=== PATIENT | male | born 1955 | race African-American/Black ===

== ENCOUNTER 2017-08-07 23:31 | Emergency (ER) | payer SELFPAY ==
[~2017-08-07] VITALS: Ht 182.9 cm; Wt 86.0 kg
[2017-08-07 23:39] VITALS: BP 129/90
[2017-08-08] MEDS ORDERED: IBUPROFEN 600MG TABLET PO ONE (00:30)
== END 2017-08-08 01:00 | disposition left against medical advice (07) ==
LOC: ER 23:31
DX: M79.644 Pain in right finger(s) (principal); F17.210 Nicotine dependence, cigarettes, uncomplicated; Z88.6 Allergy status to analgesic agent; Z98.890 Other specified postprocedural states; W01.0XXA Fall on same level from slipping, tripping and stumbling without subsequent striking against object, initial encounter; Y93.89 Activity, other specified; Y92.018 Other place in single-family (private) house as the place of occurrence of the external cause
CPT/HCPCS: 99281

== ENCOUNTER 2024-12-31 11:55 | Inpatient (IN) | payer MEDICARE ==
[~2024-12-31] VITALS: Ht 180.3 cm; Wt 78.0 kg
[2024-12-31 12:36] LABS: BASOPHILS % 0.7 % (0.0-2.0); DIFFERENTIAL COMMENT 0; EOSINOPHILS % 2.1 % (0.0-5.0); HEMATOCRIT. 42.6 % (42.0-52.0); HEMOGLOBIN. 13.8 g/dL (14.0-18.0); LYMPHOCYTES % 29.3 % (20.0-50.0); MEAN CORPUSCULAR HEMOGLOBIN 32.7 pg (28.0-32.0); MEAN CORPUSCULAR HGB CONC 32.5 g/dL (31.0-37.0); MEAN CORPUSCULAR VOLUME 100.7 fL (80.0-94.0); MEAN PLATELET VOLUME 9.2 fl (7.4-10.4); MONOCYTES % 11.2 % (2.0-8.0); NEUTROPHILS % 56.7 % (40.0-76.0); PLATELET 139 x1000/uL (130-400); RED BLOOD CELL COUNT 4.23 mill/uL (4.7-6.1); RED CELL DISTRIBUTION WIDTH 14.5 % (11.6-14.6); WHITE BLOOD COUNT 5.3 x1000/uL (4.5-11.0)
[2024-12-31 12:43] LABS: CHLORIDE 109 mEq/L (98-107); POTASSIUM 4.1 mEq/L (3.5-5.1); SODIUM 142 mEq/L (136-145)
[2024-12-31 12:44] LABS: CALCIUM 8.6 mg/dL (8.7-10.4); CARBON DIOXIDE 26 mEq/L (21-32)
[2024-12-31 12:49] LABS: CREATININE 1.3 mg/dL (0.6-1.3); GLUCOSE 99 mg/dL (70-105); UREA NITROGEN BLOOD 20 mg/dL (9-23)
[2024-12-31 12:50] LABS: TROPONIN I HIGH SENSITIVITY 15 ng/L (3.0-53)
[2024-12-31] MEDS: ONDANSETRON HCL 4MG/2ML INJ IV STA (12:52)
[2024-12-31] MEDS: NITROGLYCERIN OINT 1GM/INCH UDPKT TD ONE (12:53)
[2024-12-31] MEDS: MORPHINE SULFATE 4 MG/ML INJ (FOR IV/IM USE) IV STA (12:53)
[2024-12-31] MEDS: FUROSEMIDE 40MG/4ML VIAL IVP ONE (13:50)
[2024-12-31] MEDS ORDERED: IPRATROPIUM/ALBUTEROL 0.5-3(2.5)MG/3ML NEB HHN PRN (14:15)
[2024-12-31] MEDS ORDERED: CLONIDINE 0.1MG TABLET PO PRN (14:15)
[2024-12-31] MEDS ORDERED: ONDANSETRON HCL 4MG/2ML INJ IV PRN (14:15)
[2024-12-31] MEDS ORDERED: ACETAMINOPHEN 325MG TABLET PO PRN (14:15)
[2024-12-31] MEDS ORDERED: GUAIFENESIN 200MG/10ML SUGAR FREE UDC PO PRN (14:15)
[2024-12-31 14:45] LABS: IRON 97 ug/dL (65-175)
[2024-12-31 14:46] LABS: LDL CHOLESTEROL 113 mg/dL (5-100); TRIGLYCERIDE 69 mg/dL (0-150)
[2024-12-31 14:47] LABS: FOLIC ACID (FOLATE) SERUM 10.37 ng/mL (>5.38); VITAMIN B12 SERUM 355 pg/mL (211-911)
[2024-12-31 14:47] LABS: CHOLESTEROL 175 mg/dL (<200); HDL CHOLESTEROL 43 mg/dL (>55); PHOSPHORUS 3.2 mg/dL (2.5-4.9); TROPONIN I HIGH SENSITIVITY 17 ng/L (3.0-53)
[2024-12-31 14:48] LABS: TOTAL IRON BINDING CAPACITY 257 ug/dl (250-425)
[2024-12-31 14:48] LABS: FERRITIN 87 ng/mL (22-322)
[2024-12-31 14:50] LABS: T4 FREE 1.24 ng/dL (0.89-1.76)
[2024-12-31] MEDS: ENOXAPARIN 40MG/0.4ML SYR SUBCUT SCH (15:06)
[2024-12-31 18:46] LABS: CLARITY URINE CLEAR (CLEAR); COLOR URINE YELLOW (YELLOW); GLUCOSE URINE NEGATIVE (NEGATIVE); KETONES URINE NEGATIVE (NEGATIVE); LEUKOCYTE ESTERASE URINE NEGATIVE (NEGATIVE); NITRITE URINE NEGATIVE (NEGATIVE); OCCULT BLOOD URINE TRACE (NEGATIVE); PROTEIN URINE NEGATIVE (NEGATIVE); SPECIFIC GRAVITY URINE 1.007 (1.005-1.030); UROBILINOGEN URINE 0.2 E.U./dL (0.2-1.0)
[2024-12-31 19:07] LABS: *AMPHETAMINES SCREEN URINE NEGATIVE (NEGATIVE); *BARBITURATES SCREEN URINE NEGATIVE (NEGATIVE); *BENZODIAZEPINES SCREEN URINE NEGATIVE (NEGATIVE); *COCAINE SCREEN URINE NEGATIVE (NEGATIVE); CANNABINOID URINE SCREEN NEGATIVE (NEGATIVE); ECSTASY MDMA SCREEN URINE NEGATIVE (NEGATIVE); METHADONE URINE SCREEN NEGATIVE (NEGATIVE); OPIATES URINE SCREEN PRESUMPTIVE POSITIVE (NEGATIVE); PHENCYCLIDINE URINE SCREEN NEGATIVE (NEGATIVE)
[2024-12-31 19:27] LABS: BACTERIA URINE NONE SEEN; RBC URINE 0-2 /hpf (0-2); SQUAMOUS EPITHELIAL CELL URINE RARE /lpf (RARE/1+); WBC URINE NONE SEEN /hpf (0-2)
[2024-12-31 21:47] LABS: TROPONIN I HIGH SENSITIVITY 17 ng/L (3.0-53)
[2024-12-31] MEDS: ATORVASTATIN CALCIUM 20MG TABLET PO SCH (22:07)
[2025-01-01 00:27] LABS: CREATINE KINASE MB FRACTION 0.8 ng/mL (0.5-3.6)
[2025-01-01 03:44] LABS: HEMATOCRIT 41.1 % (42.0-52.0); HEMOGLOBIN 13.8 g/dL (14.0-18.0); MEAN CORPUSCULAR HEMOGLOBIN 33.5 pg (28.0-32.0); MEAN CORPUSCULAR HGB CONC 33.6 g/dL (31.0-37.0); MEAN CORPUSCULAR VOLUME 99.6 fL (80.0-94.0); PLATELET 135 x1000/uL (130-400); RED BLOOD CELL COUNT 4.13 mill/uL (4.7-6.1); RED CELL DISTRIBUTION WIDTH 14.7 % (11.6-14.6); WHITE BLOOD COUNT 4.7 x1000/uL (4.5-11.0)
[2025-01-01 04:07] LABS: CREATINE KINASE MB FRACTION < 0.5 ng/mL (0.5-3.6)
[2025-01-01 04:08] LABS: TROPONIN I HIGH SENSITIVITY 17 ng/L (3.0-53)
[2025-01-01 04:20] LABS: CARBON DIOXIDE 26 mEq/L (21-32); CHLORIDE 107 mEq/L (98-107); SODIUM 143 mEq/L (136-145)
[2025-01-01 04:21] LABS: CALCIUM 8.5 mg/dL (8.7-10.4)
[2025-01-01 04:25] LABS: CREATININE 1.3 mg/dL (0.6-1.3)
[2025-01-01 04:26] LABS: GLUCOSE 111 mg/dL (70-105); UREA NITROGEN BLOOD 21 mg/dL (9-23)
[2025-01-01] MEDS: ACETAMINOPHEN 325MG TABLET PO PRN (07:11)
[2025-01-01 08:00] VITALS: BP 113/80; PULSE 92; RESP 18; TEMP 36.3; O2SAT 100
[2025-01-01 08:30] VITALS: BP 113/80; PULSE 92; RESP 18; TEMP 36.3
[2025-01-01] MEDS: PANTOPRAZOLE 40MG DR TABLET PO SCH (09:50)
[2025-01-01] MEDS: FUROSEMIDE 40MG/4ML VIAL IVP SCH (09:50)
[2025-01-01] MEDS: ASPIRIN 81MG TABLET PO SCH (09:50)
[2025-01-01] MEDS: NICOTINE 14MG PATCH TD SCH (09:51)
[2025-01-01 12:00] VITALS: BP 111/78; PULSE 89; RESP 19; TEMP 36.4; O2SAT 98
[2025-01-01] MEDS ORDERED: CARV3.1242 PO (14:27)
[2025-01-01] MEDS ORDERED: ATOR20TA PO (14:27)
[2025-01-01] MEDS ORDERED: CLOP-31 PO (14:27)
[2025-01-01] MEDS: CARVEDILOL 3.125 MG TABLET PO NR (14:50)
[2025-01-01 16:00] VITALS: BP 113/71; PULSE 86; RESP 18; TEMP 36.6; O2SAT 98
[2025-01-01 20:00] VITALS: BP 108/68; PULSE 56; RESP 19; TEMP 36.5; O2SAT 98
[2025-01-01] MEDS: CARVEDILOL 3.125 MG TABLET PO SCH (20:35)
[2025-01-02] VITALS: BP 95/59; PULSE 97; RESP 18; TEMP 36.6; O2SAT 99
[2025-01-02 04:00] VITALS: BP 110/75; PULSE 64; RESP 18; TEMP 37; O2SAT 100
[2025-01-02] MEDS: SODIUM CHLORIDE 0.45% 1,000 ML IV SCH ×2 (06:00→10:21)
[2025-01-02 06:47] LABS: CHLORIDE 103 mEq/L (98-107); POTASSIUM 3.9 mEq/L (3.5-5.1); SODIUM 141 mEq/L (136-145)
[2025-01-02 06:48] LABS: CARBON DIOXIDE 27 mEq/L (21-32)
[2025-01-02 06:49] LABS: CALCIUM 9.1 mg/dL (8.7-10.4)
[2025-01-02 06:53] LABS: CREATININE 1.3 mg/dL (0.6-1.3); GLUCOSE 128 mg/dL (70-105)
[2025-01-02 06:54] LABS: TROPONIN I HIGH SENSITIVITY 13 ng/L (3.0-53); UREA NITROGEN BLOOD 24 mg/dL (9-23)
[2025-01-02 07:04] LABS: PROTHROMBIN TIME 10.9 sec (9.6-11.0)
[2025-01-02 07:23] LABS: HEMATOCRIT. 42.1 % (42.0-52.0); HEMOGLOBIN. 13.9 g/dL (14.0-18.0); MEAN CORPUSCULAR VOLUME 99.7 fL (80.0-94.0); PLATELET 144 x1000/uL (130-400); RED BLOOD CELL COUNT 4.22 mill/uL (4.7-6.1); RED CELL DISTRIBUTION WIDTH 14.2 % (11.6-14.6); WHITE BLOOD COUNT 4.1 x1000/uL (4.5-11.0)
[2025-01-02 07:57] LABS: DIFFERENTIAL COMMENT 1
[2025-01-02 08:00] VITALS: BP 109/77; PULSE 90; RESP 16; TEMP 36.6; O2SAT 97
[2025-01-02] MEDS ORDERED: ASPIRIN/SOD BICARB/CITRIC ACID 324MG TAB EFF ONE (08:22)
[2025-01-02] MEDS ORDERED: HEPARIN 1000 UNITS/ML 10ML ONE (08:42)
[2025-01-02] MEDS ORDERED: IODIXANOL 320MG/ML 100 ML BOTTLE IV ONE ×2 (08:43→09:17)
[2025-01-02] MEDS ORDERED: LIDOCAINE HCL 1% 20ML VIAL ONE (08:43)
[2025-01-02] MEDS ORDERED: MIDAZOLAM HCL 2 MG/2 ML VIAL ONE (08:43)
[2025-01-02] MEDS ORDERED: FENTANYL CITRATE/PF 50MCG/ML 2ML VIAL ONE (08:43)
[2025-01-02] MEDS ORDERED: ACETAMINOPHEN 325MG TABLET PO PRN (09:45)
[2025-01-02] MEDS ORDERED: ONDANSETRON HCL 4MG/2ML INJ IV PRN (09:45)
[2025-01-02] MEDS ORDERED: MORPHINE SULFATE 2 MG/ML INJ (NOT FOR IM USE) IV PRN (09:45)
[2025-01-02] MEDS ORDERED: ATROPINE SULFATE 1MG/10ML SYR IV PRN (09:45)
[2025-01-02 12:00] VITALS: BP 115/76; PULSE 93; RESP 14; TEMP 36.6; O2SAT 100
[2025-01-02] MEDS: CLOPIDOGREL 75MG TABLET PO ONE (12:27)
[2025-01-02 16:00] VITALS: BP 107/72; PULSE 103; RESP 17; TEMP 36.7; O2SAT 100
[2025-01-02 16:47] LABS: PLATELET ESTIMATE NORMAL
[2025-01-02 20:00] VITALS: BP 125/82; PULSE 91; RESP 14; TEMP 36.2; O2SAT 99
[2025-01-02] MEDS: ENOXAPARIN 60MG/0.6ML SYR SUBCUT SCH (20:57)
[2025-01-03] VITALS: BP 111/88; PULSE 88; RESP 18; TEMP 36.2; O2SAT 98
[2025-01-03 04:00] VITALS: BP 103/77; PULSE 87; RESP 14; TEMP 36.3; O2SAT 98
[2025-01-03 07:33] LABS: HEMOGLOBIN. 14.7 g/dL (14.0-18.0); MEAN CORPUSCULAR HEMOGLOBIN 33.5 pg (28.0-32.0); MEAN CORPUSCULAR HGB CONC 33.4 g/dL (31.0-37.0); MEAN CORPUSCULAR VOLUME 100.1 fL (80.0-94.0); PLATELET 145 x1000/uL (130-400); RED CELL DISTRIBUTION WIDTH 14.1 % (11.6-14.6); WHITE BLOOD COUNT 3.7 x1000/uL (4.5-11.0)
[2025-01-03 07:43] LABS: CHLORIDE 103 mEq/L (98-107); POTASSIUM 4.3 mEq/L (3.5-5.1); SODIUM 141 mEq/L (136-145)
[2025-01-03 07:44] LABS: CARBON DIOXIDE 30 mEq/L (21-32)
[2025-01-03 07:45] LABS: CALCIUM 8.8 mg/dL (8.7-10.4)
[2025-01-03 07:49] LABS: CREATININE 1.2 mg/dL (0.6-1.3); GLUCOSE 100 mg/dL (70-105)
[2025-01-03 07:50] LABS: UREA NITROGEN BLOOD 20 mg/dL (9-23)
[2025-01-03 08:00] VITALS: BP 106/75; PULSE 96; RESP 16; TEMP 36.6; O2SAT 98
[2025-01-03 08:37] LABS: DIFFERENTIAL COMMENT 1
[2025-01-03] MEDS: CLOPIDOGREL 75MG TABLET PO SCH (08:38)
[2025-01-03] MEDS: DOCUSATE SODIUM 100MG CAPSULE PO PRN (08:48)
[2025-01-03 12:00] VITALS: BP 114/90; PULSE 93; RESP 20; TEMP 36.8; O2SAT 100
[2025-01-03 16:00] VITALS: BP 115/89; PULSE 95; RESP 21; TEMP 36.7; O2SAT 100
[2025-01-03 17:21] LABS: PLATELET ESTIMATE NORMAL
[2025-01-03 20:00] VITALS: BP 119/82; PULSE 98; RESP 24; TEMP 36.7; O2SAT 97
[2025-01-04] VITALS (9 sets, daily range): BP systolic 101–127; BP diastolic 80–94; PULSE 78–102; RESP 12–31; TEMP 36.6–37; O2SAT 94–99
[2025-01-04] MEDS: SODIUM CHLORIDE 0.45% 1,000 ML IV SCH ×2 (06:41→12:51)
[2025-01-04 07:26] LABS: HEMATOCRIT. 41.3 % (42.0-52.0); HEMOGLOBIN. 13.5 g/dL (14.0-18.0); MEAN CORPUSCULAR HGB CONC 32.8 g/dL (31.0-37.0); MEAN CORPUSCULAR VOLUME 100.9 fL (80.0-94.0); MEAN PLATELET VOLUME 9.9 fl (7.4-10.4); PLATELET 143 x1000/uL (130-400); RED CELL DISTRIBUTION WIDTH 14.6 % (11.6-14.6); WHITE BLOOD COUNT 4.1 x1000/uL (4.5-11.0)
[2025-01-04 07:27] LABS: CHLORIDE 105 mEq/L (98-107); POTASSIUM 4.3 mEq/L (3.5-5.1); SODIUM 140 mEq/L (136-145)
[2025-01-04 07:28] LABS: CALCIUM 8.6 mg/dL (8.7-10.4); CARBON DIOXIDE 28 mEq/L (21-32)
[2025-01-04 07:33] LABS: CREATININE 1.2 mg/dL (0.6-1.3); GLUCOSE 97 mg/dL (70-105); UREA NITROGEN BLOOD 23 mg/dL (9-23)
[2025-01-04 07:34] LABS: TROPONIN I HIGH SENSITIVITY 12 ng/L (3.0-53)
[2025-01-04 07:36] LABS: INR 1.1; PROTHROMBIN TIME 11.4 sec (9.6-11.0)
[2025-01-04 08:19] LABS: DIFFERENTIAL COMMENT 1
[2025-01-04] MEDS ORDERED: ASPIRIN/SOD BICARB/CITRIC ACID 324MG TAB EFF ONE (09:21)
[2025-01-04] MEDS ORDERED: LIDOCAINE HCL 1% 20ML VIAL ONE (09:21)
[2025-01-04] MEDS ORDERED: HEPARIN 1000 UNITS/ML 10ML ONE ×2 (09:21→10:34)
[2025-01-04] MEDS ORDERED: IODIXANOL 320MG/ML 100 ML BOTTLE IV ONE (09:21)
[2025-01-04] MEDS ORDERED: FENTANYL CITRATE/PF 50MCG/ML 2ML VIAL ONE (09:40)
[2025-01-04] MEDS ORDERED: MIDAZOLAM HCL 2 MG/2 ML VIAL ONE ×3 (09:40→11:32)
[2025-01-04] MEDS ORDERED: IODIXANOL 320 MG/ML 150ML BOTTLE IV ONE (09:45)
[2025-01-04] MEDS ORDERED: CLOPIDOGREL 75MG TABLET ONE (11:29)
[2025-01-04] MEDS ORDERED: MORPHINE SULFATE 2 MG/ML INJ (NOT FOR IM USE) IV PRN (11:45)
[2025-01-04] MEDS ORDERED: ONDANSETRON HCL 4MG/2ML INJ IV PRN (11:45)
[2025-01-04] MEDS: CLOPIDOGREL 75MG TABLET PO ONE (11:45)
[2025-01-04] MEDS ORDERED: ACETAMINOPHEN 325MG TABLET PO PRN (11:45)
[2025-01-04] MEDS ORDERED: ATROPINE SULFATE 1MG/10ML SYR IV PRN (11:45)
[2025-01-04] MEDS: NITROGLYCERIN 0.4MG TABLET SL SL PRN (16:47)
[2025-01-04 21:43] LABS: PLATELET ESTIMATE NORMAL
[2025-01-05] VITALS: BP 128/94; PULSE 98; RESP 17; TEMP 37; O2SAT 99
[2025-01-05 04:00] VITALS: BP 121/89; PULSE 112; RESP 18; TEMP 36.8; O2SAT 98
[2025-01-05 06:40] LABS: BASOPHILS % 0.6 % (0.0-2.0); EOSINOPHILS % 1.5 % (0.0-5.0); HEMATOCRIT. 43.2 % (42.0-52.0); HEMOGLOBIN. 14.2 g/dL (14.0-18.0); LYMPHOCYTES % 23.2 % (20.0-50.0); MEAN CORPUSCULAR HEMOGLOBIN 32.7 pg (28.0-32.0); MEAN CORPUSCULAR HGB CONC 32.8 g/dL (31.0-37.0); MEAN CORPUSCULAR VOLUME 99.7 fL (80.0-94.0); MEAN PLATELET VOLUME 9.7 fl (7.4-10.4); NEUTROPHILS % 60.7 % (40.0-76.0); PLATELET 133 x1000/uL (130-400); RED BLOOD CELL COUNT 4.33 mill/uL (4.7-6.1); RED CELL DISTRIBUTION WIDTH 14.2 % (11.6-14.6); WHITE BLOOD COUNT 5.7 x1000/uL (4.5-11.0)
[2025-01-05 06:54] LABS: CARBON DIOXIDE 22 mEq/L (21-32); CHLORIDE 106 mEq/L (98-107); POTASSIUM 4.3 mEq/L (3.5-5.1); SODIUM 138 mEq/L (136-145)
[2025-01-05 06:56] LABS: CALCIUM 8.8 mg/dL (8.7-10.4)
[2025-01-05 06:59] LABS: CREATININE 1.2 mg/dL (0.6-1.3)
[2025-01-05 07:00] LABS: GLUCOSE 88 mg/dL (70-105); UREA NITROGEN BLOOD 19 mg/dL (9-23)
[2025-01-05 08:00] VITALS: BP 134/97; PULSE 101; RESP 17; TEMP 36.8; O2SAT 98
[2025-01-05] MEDS: CLOPIDOGREL 75MG TABLET PO SCH (08:26)
[2025-01-05] MEDS: LISINOPRIL 5MG TABLET PO SCH (08:27)
[2025-01-05] MEDS: ASPIRIN 81MG TABLET PO SCH (08:27)
[2025-01-05] MEDS: ENOXAPARIN 40MG/0.4ML SYR SUBCUT SCH (08:28)
[2025-01-05] MEDS ORDERED: ENALAPRIL 2.5MG TABLET PO SCH (09:00)
[2025-01-05] MEDS: CARVEDILOL 3.125 MG TABLET PO NR (09:34)
[2025-01-05 12:00] VITALS: BP 100/74; PULSE 88; RESP 23; TEMP 37.1; O2SAT 98
[2025-01-05 16:00] VITALS: BP 109/87; PULSE 107; RESP 18; TEMP 36.9; O2SAT 98
[2025-01-05 20:00] VITALS: BP 105/82; PULSE 108; RESP 20; TEMP 36.8; O2SAT 95
[2025-01-05] MEDS: CARVEDILOL 6.25 MG TABLET PO SCH (20:35)
[2025-01-06] VITALS: BP 101/88; PULSE 89; RESP 20; TEMP 36.9; O2SAT 96
[2025-01-06 04:00] VITALS: BP 103/80; PULSE 88; RESP 16; TEMP 36.8; O2SAT 99
[2025-01-06 07:48] LABS: HEMATOCRIT 43.4 % (42.0-52.0); HEMOGLOBIN 14.3 g/dL (14.0-18.0); MEAN CORPUSCULAR HEMOGLOBIN 33.1 pg (28.0-32.0); MEAN CORPUSCULAR HGB CONC 32.9 g/dL (31.0-37.0); MEAN CORPUSCULAR VOLUME 100.4 fL (80.0-94.0); PLATELET 138 x1000/uL (130-400); RED BLOOD CELL COUNT 4.32 mill/uL (4.7-6.1); RED CELL DISTRIBUTION WIDTH 14.1 % (11.6-14.6); WHITE BLOOD COUNT 5.9 x1000/uL (4.5-11.0)
[2025-01-06 08:00] VITALS: BP 99/83; PULSE 98; RESP 15; TEMP 36.9; O2SAT 96
[2025-01-06 08:03] LABS: CHLORIDE 106 mEq/L (98-107); POTASSIUM 4.2 mEq/L (3.5-5.1); SODIUM 142 mEq/L (136-145)
[2025-01-06 08:04] LABS: CALCIUM 8.8 mg/dL (8.7-10.4); CARBON DIOXIDE 27 mEq/L (21-32)
[2025-01-06 08:09] LABS: CREATININE 1.4 mg/dL (0.6-1.3); GLUCOSE 96 mg/dL (70-105)
[2025-01-06 08:10] LABS: UREA NITROGEN BLOOD 19 mg/dL (9-23)
[2025-01-06 08:12] LABS: PHOSPHORUS 3.3 mg/dL (2.5-4.9)
[2025-01-06] MEDS ORDERED: CLOP-31 PO (10:35)
[2025-01-06] MEDS ORDERED: ASPI-1160 PO (10:35)
[2025-01-06] MEDS ORDERED: ATOR20TA PO (10:35)
[2025-01-06] MEDS ORDERED: COR6 PO (10:35)
[2025-01-06 12:00] VITALS: BP 99/83; PULSE 89; RESP 15; TEMP 36.8; O2SAT 97
[2025-01-06 13:44] VITALS: BP 101/79; PULSE 88; TEMP 98; O2SAT 97
== END 2025-01-06 15:50 | disposition home health service (06) | DRG 217 ==
LOC: ER 11:55 → EDBEDREQ 12:29 → MICUSO 13:39 → EDBEDREQ 13:42 → 6WST 01-01 10:07 → 3WST 01-02 10:20
PROVIDERS: ADMIT Hospitalist; ATTEND Hospitalist
PROC: 4A023N7 Measurement of Cardiac Sampling and Pressure, Left Heart, Percutaneous Approach (ICD-10-PCS; 2025-01-02)
PROC: B2151ZZ Fluoroscopy of Left Heart using Low Osmolar Contrast (ICD-10-PCS; 2025-01-02)
PROC: B2111ZZ Fluoroscopy of Multiple Coronary Arteries using Low Osmolar Contrast (ICD-10-PCS; 2025-01-02)
PROC: 4A033BC Measurement of Arterial Pressure, Coronary, Percutaneous Approach (ICD-10-PCS; 2025-01-02)
PROC: B2111ZZ Fluoroscopy of Multiple Coronary Arteries using Low Osmolar Contrast (ICD-10-PCS; principal; 2025-01-04)
PROC: 027135Z Dilation of Coronary Artery, Two Arteries with Two Drug-eluting Intraluminal Devices, Percutaneous Approach (ICD-10-PCS; 2025-01-04)
PROC: 02HA3RJ Insertion of Short-term External Heart Assist System into Heart, Intraoperative, Percutaneous Approach (ICD-10-PCS; 2025-01-04)
PROC: 5A0221D Assistance with Cardiac Output using Impeller Pump, Continuous (ICD-10-PCS; 2025-01-04)
PROC: 4A023N7 Measurement of Cardiac Sampling and Pressure, Left Heart, Percutaneous Approach (ICD-10-PCS; 2025-01-04)
DX: I25.110 Atherosclerotic heart disease of native coronary artery with unstable angina pectoris (principal); I50.22 Chronic systolic (congestive) heart failure; I42.9 Cardiomyopathy, unspecified; F17.210 Nicotine dependence, cigarettes, uncomplicated; K21.9 Gastro-esophageal reflux disease without esophagitis; I34.0 Nonrheumatic mitral (valve) insufficiency; I73.9 Peripheral vascular disease, unspecified; K59.00 Constipation, unspecified; I25.2 Old myocardial infarction; Z71.6 Tobacco abuse counseling; Z79.02 Long term (current) use of antithrombotics/antiplatelets; Z79.82 Long term (current) use of aspirin; Z79.899 Other long term (current) drug therapy
CPT/HCPCS: 33990; 36415; 71045; 80048; 80061; 80305; 81003; 82553; 82607; 82728; 82746; 83036; 83540; 83550; 83735; 83880; 84100; 84439; 84443; 84484; 85025; 85027; 85347; 92928; 92929; 93005; 93306; 93458; 93923; 93970; 99285; A4606; C1725; C1760; C1769; C1874; C1887; C1893; J1644; J1650; J1940; J2250; J2270; J2405; J3010; J3490; L1830; Q9967

== ENCOUNTER 2025-02-11 09:57 | Inpatient (IN) | payer MEDICARE ==
[~2025-02-11] VITALS: Ht 180.3 cm; Wt 77.7 kg
[~2025-02-11 09:57] MED LIST: ASPI-1160 PO; ATOR20TA PO; CLOP-31 PO; COR6 PO
[2025-02-11 11:01] LABS: HEMATOCRIT. 40.3 % (42.0-52.0); HEMOGLOBIN. 13.7 g/dL (14.0-18.0); MEAN CORPUSCULAR HEMOGLOBIN 33.3 pg (28.0-32.0); MEAN CORPUSCULAR VOLUME 97.8 fL (80.0-94.0); MEAN PLATELET VOLUME 9.2 fl (7.4-10.4); PLATELET 129 x1000/uL (130-400); RED BLOOD CELL COUNT 4.12 mill/uL (4.7-6.1); RED CELL DISTRIBUTION WIDTH 13.5 % (11.6-14.6); WHITE BLOOD COUNT 4.5 x1000/uL (4.5-11.0)
[2025-02-11 11:07] LABS: DIFFERENTIAL COMMENT 1
[2025-02-11 11:17] LABS: INR 1.1; PARTIAL THROMBOPLASTIN TIME 25.9 sec (23.4-31.0); PROTHROMBIN TIME 12.1 sec (9.6-11.0)
[2025-02-11 11:18] LABS: CARBON DIOXIDE 24 mEq/L (21-32); CHLORIDE 107 mEq/L (98-107); SODIUM 140 mEq/L (136-145)
[2025-02-11 11:19] LABS: CALCIUM 8.7 mg/dL (8.7-10.4)
[2025-02-11 11:24] LABS: CREATININE 1.4 mg/dL (0.6-1.3); GLUCOSE 93 mg/dL (70-105); TROPONIN I HIGH SENSITIVITY 13 ng/L (3.0-53); UREA NITROGEN BLOOD 19 mg/dL (9-23)
[2025-02-11] MEDS ORDERED: KCL 10MEQ/50ML PREMIX 100 ML IV SCH (12:30)
[2025-02-11 13:14] LABS: TROPONIN I HIGH SENSITIVITY 12 ng/L (3.0-53)
[2025-02-11 13:48] LABS: PLATELET ESTIMATE NORMAL
[2025-02-11] MEDS ORDERED: ACETAMINOPHEN 325MG TABLET PO PRN (14:30)
[2025-02-11] MEDS ORDERED: IPRATROPIUM/ALBUTEROL 0.5-3(2.5)MG/3ML NEB HHN PRN (14:30)
[2025-02-11] MEDS ORDERED: DOCUSATE SODIUM 100MG CAPSULE PO PRN (14:30)
[2025-02-11] MEDS ORDERED: NITROGLYCERIN 0.4MG TABLET SL SL PRN (14:30)
[2025-02-11] MEDS ORDERED: CLONIDINE 0.1MG TABLET PO PRN (14:30)
[2025-02-11] MEDS ORDERED: LORAZEPAM 0.5MG TABLET PO PRN (14:30)
[2025-02-11] MEDS ORDERED: ONDANSETRON HCL 4MG/2ML INJ IV PRN (14:30)
[2025-02-11] MEDS ORDERED: NALOXONE HCL 0.4MG/ML VIAL IV PRN (15:00)
[2025-02-11] MEDS: FUROSEMIDE 40MG/4ML VIAL IVP SCH (16:05)
[2025-02-11] MEDS: HYDROCODONE/ACETAMINOPHEN 5/325MG TABLET PO PRN (16:06)
[2025-02-11 16:38] VITALS: BP 133/92; PULSE 94; RESP 22; TEMP 36.6; O2SAT 98
[2025-02-11] MEDS ORDERED: NITR0.4T SL (17:41)
[2025-02-11 19:19] LABS: CLARITY URINE CLEAR (CLEAR); COLOR URINE YELLOW (YELLOW); GLUCOSE URINE NEGATIVE (NEGATIVE); KETONES URINE NEGATIVE (NEGATIVE); LEUKOCYTE ESTERASE URINE NEGATIVE (NEGATIVE); NITRITE URINE NEGATIVE (NEGATIVE); OCCULT BLOOD URINE TRACE (NEGATIVE); PH URINE 6.5 (4.5-8.0); PROTEIN URINE NEGATIVE (NEGATIVE); SPECIFIC GRAVITY URINE 1.007 (1.005-1.030); UROBILINOGEN URINE 0.2 E.U./dL (0.2-1.0)
[2025-02-11 19:28] LABS: BACTERIA URINE NONE SEEN; RBC URINE 0-2 /hpf (0-2); SQUAMOUS EPITHELIAL CELL URINE RARE /lpf (RARE/1+); WBC URINE NONE SEEN /hpf (0-2)
[2025-02-11 19:29] LABS: *AMPHETAMINES SCREEN URINE NEGATIVE (NEGATIVE)
[2025-02-11 19:30] LABS: *BARBITURATES SCREEN URINE NEGATIVE (NEGATIVE); *BENZODIAZEPINES SCREEN URINE NEGATIVE (NEGATIVE); *COCAINE SCREEN URINE NEGATIVE (NEGATIVE); CANNABINOID URINE SCREEN NEGATIVE (NEGATIVE); ECSTASY MDMA SCREEN URINE NEGATIVE (NEGATIVE); METHADONE URINE SCREEN NEGATIVE (NEGATIVE); OPIATES URINE SCREEN NEGATIVE (NEGATIVE); PHENCYCLIDINE URINE SCREEN NEGATIVE (NEGATIVE)
[2025-02-11 20:00] VITALS: BP 129/97; PULSE 106; RESP 19; TEMP 36.3; O2SAT 95
[2025-02-11] MEDS: CARVEDILOL 3.125 MG TABLET PO SCH (20:07)
[2025-02-11] MEDS: GUAIFENESIN 200MG/10ML SUGAR FREE UDC PO PRN (20:07)
[2025-02-11] MEDS: FAMOTIDINE 20MG TABLET PO SCH (20:07)
[2025-02-11] MEDS: ATORVASTATIN CALCIUM 40MG TABLET PO SCH (20:08)
[2025-02-12] VITALS: BP 126/94; PULSE 98; RESP 20; TEMP 36.6; O2SAT 98
[2025-02-12 00:54] LABS: CREATINE KINASE 191 IU/L (46-171); CREATINE KINASE MB FRACTION < 0.5 ng/mL (0.5-3.6); TROPONIN I HIGH SENSITIVITY 15 ng/L (3.0-53)
[2025-02-12 04:00] VITALS: BP 109/75; PULSE 85; RESP 20; TEMP 36.4; O2SAT 93
[2025-02-12 06:27] LABS: CHLORIDE 103 mEq/L (98-107); POTASSIUM 3.9 mEq/L (3.5-5.1); SODIUM 137 mEq/L (136-145)
[2025-02-12 06:28] LABS: CARBON DIOXIDE 25 mEq/L (21-32)
[2025-02-12 06:29] LABS: HEMATOCRIT. 44.1 % (42.0-52.0); HEMOGLOBIN. 14.9 g/dL (14.0-18.0); MEAN CORPUSCULAR HEMOGLOBIN 32.9 pg (28.0-32.0); MEAN CORPUSCULAR HGB CONC 33.7 g/dL (31.0-37.0); MEAN CORPUSCULAR VOLUME 97.6 fL (80.0-94.0); MEAN PLATELET VOLUME 9.4 fl (7.4-10.4); PLATELET 125 x1000/uL (130-400); RED BLOOD CELL COUNT 4.52 mill/uL (4.7-6.1); RED CELL DISTRIBUTION WIDTH 13.7 % (11.6-14.6); WHITE BLOOD COUNT 3.3 x1000/uL (4.5-11.0)
[2025-02-12 06:33] LABS: CREATININE 1.4 mg/dL (0.6-1.3); GLUCOSE 99 mg/dL (70-105); TRIGLYCERIDE 71 mg/dL (0-150)
[2025-02-12 06:34] LABS: LDL CHOLESTEROL 72 mg/dL (5-100); UREA NITROGEN BLOOD 17 mg/dL (9-23)
[2025-02-12 06:35] LABS: CHOLESTEROL 120 mg/dL (<200); CREATINE KINASE 198 IU/L (46-171); CREATINE KINASE MB FRACTION < 0.5 ng/mL (0.5-3.6); HDL CHOLESTEROL 30 mg/dL (>55)
[2025-02-12 06:36] LABS: PHOSPHORUS 3.6 mg/dL (2.5-4.9); TROPONIN I HIGH SENSITIVITY 16 ng/L (3.0-53)
[2025-02-12 06:39] LABS: THYROID STIMULATING HORMONE 0.45 uIU/mL (0.55-4.78)
[2025-02-12 07:02] LABS: DIFFERENTIAL COMMENT 1
[2025-02-12 08:00] VITALS: BP 110/71; PULSE 79; RESP 20; TEMP 36.4; O2SAT 97
[2025-02-12] MEDS: ENOXAPARIN 40MG/0.4ML SYR SUBCUT SCH (09:56)
[2025-02-12] MEDS: ASPIRIN 81MG TABLET PO SCH (09:56)
[2025-02-12] MEDS: CLOPIDOGREL 75MG TABLET PO SCH (09:57)
[2025-02-12 12:00] VITALS: BP 129/86; PULSE 97; RESP 20; TEMP 36.7; O2SAT 100
[2025-02-12 12:12] LABS: PLATELET ESTIMATE NORMAL
[2025-02-12 16:00] VITALS: BP 113/74; PULSE 81; RESP 20; TEMP 36.6; O2SAT 98
[2025-02-12 20:00] VITALS: BP 119/82; PULSE 79; RESP 18; TEMP 36.1; O2SAT 97
[2025-02-12] MEDS: CARVEDILOL 6.25 MG TABLET PO SCH (21:05)
[2025-02-12] MEDS: ACETAMINOPHEN 325MG TABLET PO PRN (21:14)
[2025-02-13] VITALS: BP 104/74; PULSE 73; RESP 18; TEMP 36.6; O2SAT 95
[2025-02-13 04:00] VITALS: BP 100/69; PULSE 75; RESP 18; TEMP 35.7; O2SAT 99
[2025-02-13 07:38] LABS: CARBON DIOXIDE 27 mEq/L (21-32); CHLORIDE 101 mEq/L (98-107); POTASSIUM 3.6 mEq/L (3.5-5.1); SODIUM 137 mEq/L (136-145)
[2025-02-13 07:39] LABS: CALCIUM 8.8 mg/dL (8.7-10.4)
[2025-02-13 07:44] LABS: CREATININE 1.3 mg/dL (0.6-1.3); GLUCOSE 83 mg/dL (70-105); UREA NITROGEN BLOOD 21 mg/dL (9-23)
[2025-02-13 07:56] LABS: HEMATOCRIT. 43.9 % (42.0-52.0); HEMOGLOBIN. 14.6 g/dL (14.0-18.0); MEAN CORPUSCULAR HEMOGLOBIN 32.6 pg (28.0-32.0); MEAN CORPUSCULAR HGB CONC 33.3 g/dL (31.0-37.0); MEAN CORPUSCULAR VOLUME 97.6 fL (80.0-94.0); MEAN PLATELET VOLUME 9.3 fl (7.4-10.4); PLATELET 132 x1000/uL (130-400); RED BLOOD CELL COUNT 4.49 mill/uL (4.7-6.1); RED CELL DISTRIBUTION WIDTH 13.6 % (11.6-14.6); WHITE BLOOD COUNT 3.9 x1000/uL (4.5-11.0)
[2025-02-13 08:29] VITALS: BP 110/67; PULSE 83; RESP 18; TEMP 36.4; O2SAT 100
[2025-02-13 08:55] LABS: DIFFERENTIAL COMMENT 1
[2025-02-13] MEDS: LOSARTAN 25 MG TABLET PO SCH (09:00)
[2025-02-13] MEDS: EMPAGLIFLOZIN 10MG TABLET PO SCH (09:01)
[2025-02-13 12:00] VITALS: BP 96/65; PULSE 69; RESP 18; TEMP 36.3; O2SAT 100
[2025-02-13 16:00] VITALS: BP 98/70; PULSE 72; RESP 18; TEMP 36.6; O2SAT 100
[2025-02-13 18:47] LABS: INFLUENZA TYPE A Presumptive Negative (Pres. Neg.)
[2025-02-13 18:48] LABS: INFLUENZA TYPE B Presumptive Negative (Pres. Neg.)
[2025-02-13 20:28] LABS: PLATELET ESTIMATE NORMAL
[2025-02-14] VITALS: BP 113/78; PULSE 77; RESP 20; TEMP 36.5; O2SAT 100
[2025-02-14 06:25] LABS: HEMATOCRIT. 44.1 % (42.0-52.0); HEMOGLOBIN. 14.9 g/dL (14.0-18.0); MEAN CORPUSCULAR HEMOGLOBIN 32.9 pg (28.0-32.0); MEAN CORPUSCULAR HGB CONC 33.9 g/dL (31.0-37.0); MEAN CORPUSCULAR VOLUME 97.2 fL (80.0-94.0); MEAN PLATELET VOLUME 9.5 fl (7.4-10.4); PLATELET 141 x1000/uL (130-400); RED BLOOD CELL COUNT 4.54 mill/uL (4.7-6.1); RED CELL DISTRIBUTION WIDTH 13.5 % (11.6-14.6); WHITE BLOOD COUNT 4.9 x1000/uL (4.5-11.0)
[2025-02-14 06:46] LABS: CARBON DIOXIDE 27 mEq/L (21-32); CHLORIDE 102 mEq/L (98-107); POTASSIUM 3.7 mEq/L (3.5-5.1); SODIUM 139 mEq/L (136-145)
[2025-02-14 06:47] LABS: CALCIUM 9.2 mg/dL (8.7-10.4)
[2025-02-14 06:52] LABS: CREATININE 1.5 mg/dL (0.6-1.3); GLUCOSE 100 mg/dL (70-105); UREA NITROGEN BLOOD 23 mg/dL (9-23)
[2025-02-14 07:06] LABS: DIFFERENTIAL COMMENT 1
[2025-02-14 08:49] VITALS: BP 101/68; PULSE 80; RESP 20; TEMP 36.6; O2SAT 98
[2025-02-14] MEDS: SPIRONOLACTONE 25MG TABLET PO SCH (09:00)
[2025-02-14 12:23] VITALS: PULSE 77; RESP 20; TEMP 36.1; O2SAT 96
[2025-02-14 12:26] VITALS: BP 93/61; PULSE 77; RESP 20; TEMP 35.9; O2SAT 96
[2025-02-14 12:45] LABS: PLATELET ESTIMATE NORMAL
[2025-02-14] MEDS ORDERED: FURO40TA5 MT (13:49)
[2025-02-14] MEDS ORDERED: CLOP-31 PO (13:49)
[2025-02-14] MEDS ORDERED: LIP40 PO (13:49)
[2025-02-14] MEDS ORDERED: EMPA10TA PO (13:49)
[2025-02-14] MEDS ORDERED: COR6 PO (13:49)
[2025-02-14] MEDS ORDERED: LOSA25TA26 PO (13:49)
[2025-02-14] MEDS ORDERED: ISOS30TA91 PO (13:49)
[2025-02-14] MEDS ORDERED: ASPI-1160 PO (13:49)
[2025-02-14] MEDS ORDERED: FAMO20TA8 PO (13:49)
[2025-02-14] MEDS ORDERED: SPIR25TA PO (13:49)
[2025-02-14 16:00] VITALS: BP 122/66; PULSE 78; RESP 17; TEMP 36.6; O2SAT 98
[2025-02-14 16:37] VITALS: BP 100/68; PULSE 80; TEMP 97.2; O2SAT 98
[2025-02-14] MEDS ORDERED: ISOSORBIDE MONONITRATE 30MG TABLET SR 24HR PO SCH (21:00)
== END 2025-02-14 17:45 | disposition home health service (06) | DRG 291 ==
LOC: ER 09:57 → EDBEDREQ 10:44 → 7WST 13:48 → EDBEDREQ 13:50
PROVIDERS: ADMIT Hospitalist; ATTEND Hospitalist
DX: I13.0 Hypertensive heart and chronic kidney disease with heart failure and stage 1 through stage 4 chronic kidney disease, or unspecified chronic kidney disease (principal); I50.23 Acute on chronic systolic (congestive) heart failure; I24.9 Acute ischemic heart disease, unspecified; E78.5 Hyperlipidemia, unspecified; F17.210 Nicotine dependence, cigarettes, uncomplicated; I25.10 Atherosclerotic heart disease of native coronary artery without angina pectoris; J44.9 Chronic obstructive pulmonary disease, unspecified; N18.9 Chronic kidney disease, unspecified; I73.9 Peripheral vascular disease, unspecified; E05.90 Thyrotoxicosis, unspecified without thyrotoxic crisis or storm; I42.9 Cardiomyopathy, unspecified; I34.0 Nonrheumatic mitral (valve) insufficiency; I95.9 Hypotension, unspecified; I25.2 Old myocardial infarction; Z88.8 Allergy status to other drugs, medicaments and biological substances; Z79.82 Long term (current) use of aspirin; Z79.899 Other long term (current) drug therapy; Z79.02 Long term (current) use of antithrombotics/antiplatelets; Z79.1 Long term (current) use of non-steroidal anti-inflammatories (NSAID); Z79.891 Long term (current) use of opiate analgesic; Z95.5 Presence of coronary angioplasty implant and graft
CPT/HCPCS: 36415; 71045; 80048; 80061; 80305; 81003; 82550; 82553; 83605; 83735; 83880; 84100; 84145; 84439; 84443; 84480; 84484; 85025; 87804; 93005; 97161; 97166; 99285; J1650; J1940

== ENCOUNTER 2025-06-06 12:02 | Emergency (ER) | payer MEDICARE ==
[~2025-06-06] VITALS: Ht 175.3 cm; Wt 82.0 kg
[~2025-06-06 12:02] MED LIST changes: -ATOR20TA PO; +EMPA10TA PO; +FAMO20TA8 PO; +FURO40TA5 MT; +ISOS30TA91 PO; +LIP40 PO; +LOSA25TA26 PO; +NITR0.4T SL; +SPIR25TA PO
[2025-06-06 12:12] VITALS: BP 95/65; PULSE 86; RESP 18; TEMP 36.6; O2SAT 98
[2025-06-06] MEDS: KETOROLAC 30MG/ML VIAL IM ONE (15:27)
[2025-06-06] MEDS: DIPHENHYDRAMINE 25MG CAPSULE PO ONE (15:28)
[2025-06-06] MEDS: METOCLOPRAMIDE HCL 10MG TABLET PO ONE (15:28)
[2025-06-06] MEDS ORDERED: ASPI-740 PO (16:06)
== END 2025-06-06 17:06 | disposition home or self-care (01) ==
LOC: ER 12:02
DX: G43.909 Migraine, unspecified, not intractable, without status migrainosus (principal); E78.00 Pure hypercholesterolemia, unspecified; I25.2 Old myocardial infarction; Z79.899 Other long term (current) drug therapy; Z79.82 Long term (current) use of aspirin
CPT/HCPCS: 99285; 70450; 96372; J1885; Q0163; J8597